=== PATIENT | male | born 1970 | race Two or more races ===

== ENCOUNTER 2021-04-12 22:21 | Inpatient (IN) | payer OTHER ==
[~2021-04-12] VITALS: Ht 170.2 cm; Wt 89.4 kg
[2021-04-12] MEDS ORDERED: ONDANSETRON HCL 4 MG/2 ML VIAL IV ONE (22:45)
[2021-04-12] MEDS ORDERED: PANTOPRAZOLE 40 MG/10 ML VIAL INJ IV ONE (22:45)
[2021-04-12] MEDS ORDERED: SODIUM CHLORIDE 0.9% 1,000 ML IV ONE (22:45)
[2021-04-12 22:53] LABS: Basophils # (auto) 0.1 10 ^3/uL (0-0.2); Eosinophils # (auto) 0.1 10 ^3/uL (0-0.8); Hemoglobin 10.6 g/dL (13.5-17.5); Mean Corpuscular Volume 103.5 fL (80.0-100.0); White Blood Cell 10.4 10^3/uL (4.4-10.8)
[2021-04-12 22:54] LABS: Eosinophils % (auto) 0.8 % (0.0-7.0); Lymphocytes % (auto) 32.1 % (10.0-50.0); Monocytes % (auto) 9.3 % (0.0-12.0); Neutrophils % (auto) 56.8 % (37.0-80.0)
[2021-04-12 22:55] LABS: Hematocrit 30.4 % (41.0-53.0); Lymphocytes # (auto) 3.3 10 ^3/uL (0.4-5.4); Mean Corpuscular Hemoglobin 36.1 pg (28.0-32.0); Mean Corpuscular Hgb Conc. 34.9 g/dL (32.0-36.0); Neutrophils # (auto) 5.9 10 ^3/uL (1.6-8.6); Nucleated Red Blood Cells % 0.1 %; Platelet Count (auto) 150 10^3/uL (140-450); Red Blood Cells 2.93 10^6/uL (4.5-5.90); Red Cell Distribution Width 15.4 % (11.8-14.3)
[2021-04-12 23:00] LABS: Urine Bacteria FEW /hpf (None Seen); Urine Blood Negative /uL (Negative); Urine Hyaline Cast FEW /lpf (0 - 2); Urine Mucus FEW (None Seen); Urine WBC 2 /hpf (0 - 3)
[2021-04-12 23:11] LABS: Alanine Aminotransferase 38 U/L (16-61); Anion Gap 7 (5-15); Aspartate Aminotransferase 97 U/L (15-37); BUN/Creatinine Ratio 15.7; Blood Urea Nitrogen 13 mg/dL (7-18); Calcium 8.3 mg/dL (8.5-10.1); Carbon Dioxide 28 mmol/L (21-32); Chloride 100 mmol/L (98-107); GFR African American 126 mL/min; GFR Non-African American 104 mL/min; Glucose 134 mg/dL (74-106); Potassium 4.2 mmol/L (3.5-5.1); Sodium 135 mmol/L (136-145)
[2021-04-12 23:16] LABS: Alkaline Phosphatase 135 U/L (45-117); Bilirubin, Total 3.4 mg/dL (0.2-1.0)
[2021-04-12 23:18] LABS: INR 1.53 (0.9-1.15)
[2021-04-13 00:02] LABS: Amylase 63 U/L (25-115); Lipase 258 U/L (73-393)
[2021-04-13] MEDS ORDERED: SODIUM CHLORIDE 0.9% 1,000 ML IV ONE (00:45)
[2021-04-13] MEDS ORDERED: ONDANSETRON HCL 4 MG/2 ML VIAL IV PRN (02:30)
[2021-04-13] MEDS ORDERED: NITROGLYCERIN 0.4 MG SL TAB SL PRN (02:30)
[2021-04-13] MEDS ORDERED: MORPHINE SULF INJ 2 MG/ML SYRINGE 1ML IV PRN (02:30)
[2021-04-13] MEDS: SODIUM CHLORIDE 0.9% 1,000 ML IV SCH ×2 (02:48→15:50)
[2021-04-13] MEDS: PANTOPRAZOLE 40mg/50ML NS AE 50 ML IV SCH ×5 (02:49→22:29)
[2021-04-13 07:06] LABS: Hemoglobin 8.9 g/dL (13.5-17.5)
[2021-04-13 07:09] LABS: Hematocrit 25.3 % (41.0-53.0)
[2021-04-13] MEDS: OCTREOTIDE ACETATE 500 MCG in SODIUM CHL 0.9% 99 ML IV SCH ×2 (10:51→13:58)
[2021-04-13 13:00] VITALS: BP 111/52
[2021-04-13 16:33] VITALS: BP 118/57
[2021-04-13 20:00] VITALS: BP 108/57
[2021-04-13 22:12] LABS: Hematocrit 22.6 % (41.0-53.0); Hemoglobin 8.1 g/dL (13.5-17.5)
[2021-04-13] MEDS ORDERED: chlordiazePOXIDE HCL 5 MG CAP PO PRN (22:15)
[2021-04-14] MEDS: PANTOPRAZOLE 40mg/50ML NS AE 50 ML IV SCH ×3 (03:27→13:30)
[2021-04-14 05:00] VITALS: BP 111/57
[2021-04-14] MEDS: SODIUM CHLORIDE 0.9% 1,000 ML IV SCH ×2 (05:10→18:30)
[2021-04-14 06:26] LABS: Basophils # (auto) 0.1 10 ^3/uL (0-0.2); Basophils % (auto) 1.1 % (0.0-2.0); Eosinophils # (auto) 0.2 10 ^3/uL (0-0.8); Hematocrit 22.4 % (41.0-53.0); Hemoglobin 7.9 g/dL (13.5-17.5); Mean Corpuscular Hemoglobin 36.8 pg (28.0-32.0); Mean Corpuscular Hgb Conc. 35.3 g/dL (32.0-36.0); Monocytes # (auto) 0.7 10 ^3/uL (0-1.3); Monocytes % (auto) 10.4 % (0.0-12.0); Neutrophils # (auto) 2.7 10 ^3/uL (1.6-8.6)
[2021-04-14 06:28] LABS: Eosinophils % (auto) 2.6 % (0.0-7.0); Lymphocytes # (auto) 3.1 10 ^3/uL (0.4-5.4); Lymphocytes % (auto) 46.6 % (10.0-50.0); Mean Corpuscular Volume 104.1 fL (80.0-100.0); Neutrophils % (auto) 39.3 % (37.0-80.0); Nucleated Red Blood Cells % 0.2 %; Platelet Count (auto) 101 10^3/uL (140-450); Red Blood Cells 2.15 10^6/uL (4.5-5.90); White Blood Cell 6.7 10^3/uL (4.4-10.8)
[2021-04-14 06:40] LABS: Potassium 4.1 mmol/L (3.5-5.1)
[2021-04-14 06:45] LABS: Albumin 2.5 g/dL (3.4-5.0); BUN/Creatinine Ratio 20.6; Calcium 8.1 mg/dL (8.5-10.1)
[2021-04-14] MEDS: OCTREOTIDE ACETATE 500 MCG in SODIUM CHL 0.9% 99 ML IV SCH (06:45)
[2021-04-14 06:48] LABS: Bilirubin, Total 4.1 mg/dL (0.2-1.0); Total Protein 5.4 g/dL (6.4-8.2)
[2021-04-14 09:00] VITALS: BP 108/60
[2021-04-14] MEDS ORDERED: LIDOCAINE VISCOUS 2% 15ML UD ONE (09:47)
[2021-04-14] MEDS ORDERED: SODIUM CHLORIDE LOCK 10 ML ONE (09:47)
[2021-04-14 10:13] LABS: Hemoglobin 8.3 g/dL (13.5-17.5)
[2021-04-14 10:16] LABS: Hematocrit 23.2 % (41.0-53.0)
[2021-04-14 13:00] VITALS: BP 110/56
[2021-04-14] MEDS: diphenhdrAMINE HCL 50 MG/1 ML VL ONE ×2 (13:01→13:04)
[2021-04-14] MEDS: fentaNYL CITRATE 100 MCG/2 ML VL ONE ×2 (13:01→13:04)
[2021-04-14] MEDS: MIDAZOLAM HCL 5 MG/ML-1ML VIAL ONE ×2 (13:01→13:04)
[2021-04-14 17:00] VITALS: BP 111/62
[2021-04-14] MEDS: SUCRALFATE 1 GM/10 ML ORAL SUSP PO SCH ×2 (17:46→21:38)
[2021-04-14] MEDS: FERROUS SULFATE 325mg EC TAB PO SCH (17:46)
[2021-04-14 20:00] VITALS: BP 116/64
[2021-04-14] MEDS: PANTOPRAZOLE 40 MG/10 ML VIAL INJ IV SCH (21:38)
[2021-04-14 22:00] VITALS: BP 116/64
[2021-04-14 22:27] LABS: Hemoglobin 8.1 g/dL (13.5-17.5)
[2021-04-14 22:29] LABS: Hematocrit 23.5 % (41.0-53.0)
[2021-04-15] MEDS: SODIUM CHLORIDE 0.9% 1,000 ML IV SCH (00:57)
[2021-04-15 05:00] VITALS: BP 115/58
[2021-04-15 05:18] LABS: Basophils # (auto) 0.1 10 ^3/uL (0-0.2); Basophils % (auto) 0.8 % (0.0-2.0); Eosinophils # (auto) 0.3 10 ^3/uL (0-0.8); Eosinophils % (auto) 2.8 % (0.0-7.0); Hematocrit 24.7 % (41.0-53.0); Hemoglobin 8.9 g/dL (13.5-17.5); Lymphocytes # (auto) 3.5 10 ^3/uL (0.4-5.4); Lymphocytes % (auto) 34.5 % (10.0-50.0); Mean Corpuscular Hemoglobin 37.2 pg (28.0-32.0); Mean Corpuscular Hgb Conc. 36.2 g/dL (32.0-36.0); Monocytes % (auto) 9.6 % (0.0-12.0); Neutrophils # (auto) 5.3 10 ^3/uL (1.6-8.6); Neutrophils % (auto) 52.3 % (37.0-80.0); Nucleated Red Blood Cells % 0.1 %; Platelet Count (auto) 117 10^3/uL (140-450); White Blood Cell 10.1 10^3/uL (4.4-10.8)
[2021-04-15 05:40] LABS: Calcium 7.9 mg/dL (8.5-10.1); Potassium 3.8 mmol/L (3.5-5.1)
[2021-04-15 05:41] LABS: BUN/Creatinine Ratio 9.8
[2021-04-15] MEDS: SUCRALFATE 1 GM/10 ML ORAL SUSP PO SCH ×2 (06:05→12:10)
[2021-04-15 09:06] VITALS: BP 117/65
[2021-04-15] MEDS: FERROUS SULFATE 325mg EC TAB PO SCH (09:50)
[2021-04-15] MEDS: PANTOPRAZOLE 40 MG/10 ML VIAL INJ IV SCH (09:50)
[2021-04-15 10:07] LABS: Hemoglobin 8.1 g/dL (13.5-17.5)
[2021-04-15 10:12] LABS: Hematocrit 22.6 % (41.0-53.0)
[2021-04-15] MEDS ORDERED: PANT40TA2 PO (10:32)
[2021-04-15] MEDS ORDERED: SUCR1SUS10 PO (10:32)
[2021-04-15 11:06] VITALS: BP 117/65
== END 2021-04-15 14:00 | disposition home or self-care (01) | DRG 253 ==
LOC: ER 22:24 → TELE 04-13 02:19 → TELE-CENTR 04-13 12:45
PROVIDERS: ADMIT Nurse Practitioner; ATTEND Internal Medicine Pulmonary Disease
PROC: 0DB68ZX Excision of Stomach, Via Natural or Artificial Opening Endoscopic, Diagnostic (ICD-10-PCS; 2021-04-14)
PROC: 0DB98ZX Excision of Duodenum, Via Natural or Artificial Opening Endoscopic, Diagnostic (ICD-10-PCS; principal; 2021-04-14 12:48)
DX: K92.0 Hematemesis (principal); D68.9 Coagulation defect, unspecified; K76.6 Portal hypertension; E44.0 Moderate protein-calorie malnutrition; K29.90 Gastroduodenitis, unspecified, without bleeding; I85.10 Secondary esophageal varices without bleeding; K70.30 Alcoholic cirrhosis of liver without ascites; K70.9 Alcoholic liver disease, unspecified; F10.10 Alcohol abuse, uncomplicated; K52.9 Noninfective gastroenteritis and colitis, unspecified; Z68.30 Body mass index [BMI] 30.0-30.9, adult; I10 Essential (primary) hypertension; K25.9 Gastric ulcer, unspecified as acute or chronic, without hemorrhage or perforation; K31.9 Disease of stomach and duodenum, unspecified; K29.70 Gastritis, unspecified, without bleeding; Y90.9 Presence of alcohol in blood, level not specified; K29.80 Duodenitis without bleeding; K44.9 Diaphragmatic hernia without obstruction or gangrene; K76.0 Fatty (change of) liver, not elsewhere classified; Z82.49 Family history of ischemic heart disease and other diseases of the circulatory system; Z79.899 Other long term (current) drug therapy
CPT/HCPCS: 36415; 71045; 74176; 80048; 80053; 81001; 82150; 82270; 83690; 83880; 84484; 85014; 85018; 85025; 85610; 85730; 86850; 86900; 86901; 87426; 93005; 96360; C9113; G0378; J2250; J2405

== ENCOUNTER 2021-06-20 07:58 | Emergency (ER) | payer OTHER ==
[~2021-06-20] VITALS: Ht 170.2 cm; Wt 81.6 kg
[~2021-06-20 07:58] MED LIST: PANT40TA2 PO; SUCR1SUS10 PO
[2021-06-20] MEDS ORDERED: KETOROLAC TROMETH 60MG/2ML VIAL IM ONE (09:15)
[2021-06-20 09:22] VITALS: BP 125/72
== END 2021-06-20 09:25 | disposition home or self-care (01) ==
LOC: ER 07:58
DX: M19.011 Primary osteoarthritis, right shoulder (principal); I10 Essential (primary) hypertension; Z79.899 Other long term (current) drug therapy
CPT/HCPCS: 73030; 96372; 99283; J1885